=== PATIENT | female | born 1995 | race Caucasian/White ===

== ENCOUNTER 2017-06-15 17:05 | Emergency (ER) | payer BC, OTHER ==
[~2017-06-15] VITALS: Ht 165.1 cm; Wt 104.1 kg
[~2017-06-15 17:05] MED LIST: ASPEC325 PO; BCPILLS PO; GABA1CAP PO; OXYC-57 PO; OXYSR/10 PO; PROM25TA9 PO
[2017-06-15 17:06] VITALS: TEMP 36.7; Ht 165.1 cm; Wt 104.1 kg
[2017-06-15] MEDS ORDERED: IBUP-103 PO (17:26)
[2017-06-15] MEDS ORDERED: PLQ200 PO (17:26)
--- NOTE | 2017-06-15 17:33 | EMERGENCY ROOM VISIT NOTE ---
History Report prepared by Lolaibe: Kristy Alford Under the Supervision of: Dr. Abbe Joseph M.D. First contact with patient: 17:14 Chief Complaint: HEADACHE Stated Complaint: REALLY BAD HEADACHE History of Present Illness The patient is a 21 year old female who presents to the Emergency Room with complaints of a worsening headache for the past 4 days. She is accompanied by her parents. She rates her discomfort as a 7/10 in severity. Advil and extra strength Tylenol have provided only minimal relief. The patient complains of nausea but she has not vomited. She notes she has experienced similar headaches in the past, but states her current symptoms have lasted longer than any previous episode. The last time she had a headache was approximately 1 year ago. Her father admits to a family history of migraine headaches. She went to [facility] earlier today and was sent here to the ED for further evaluation and management. She denies any recent dizziness, fevers, chills, cough or cold symptoms, back pain, abdominal pain, vaginal bleeding or abnormal discharge, diarrhea or urinary symptoms. The patient also denies any recent drug or alcohol use and states she feels safe at home. Source of History: patient Onset: 4 days [employer]PUT[employer] TRA[employer] Position: head Symptom Intensity: 7/10 Timing: worsening Modifying Factors (Relieving): tylenol, ibuprofen (Advil) Associated Symptoms: + nausea, + vomiting, No fevers, No chills, No cough ( cough or cold symptoms), No abdominal pain, No back pain, No diarrhea, No urinary symptoms Review of Systems See HPI for pertinent positives and negatives. A total of ten systems were reviewed and were otherwise negative. Family History Migraine headaches Social History Smoking Status: Never Smoker Alcohol Use: occasionally Drug Use: none Marital Status: single Housing Status: lives with family Occupation Status: employed Current/Historical Medications Scheduled Control Pills ( Control Pills), 1 TAB PO HS Hydroxychloroquine Sulfate (Hydroxychloroquine Sulfat), 2 TABS PO HS Ibuprofen Tab (Advil), 600 MG PO UD Allergies Coded Allergies: No Known Allergies (Unverified , NONE, 06/15/17) Physical Exam Vital Signs Date Time Temp Pulse Resp B/P (MAP) Pulse Ox O2 Delivery O2 Flow Rate FiO2 06/15/17 19:55 69 18 128/62 98 Room Air 06/15/17 18:58 60 16 125/68 98 Room Air 06/15/17 17:06 36.7 70 18 125/69 98 Room Air Physical Exam GENERAL: Awake, alert, well-appearing, in no distress HENT: Normocephalic, atraumatic. Oropharynx unremarkable. Mildly dry mucous membranes. EYES: Normal conjunctiva. Sclera non-icteric. NECK: Supple. No nuchal rigidity. FROM. No JVD. RESPIRATORY: Clear to auscultation. CARDIAC: Regular rate, normal rhythm. Extremities warm and well perfused. Pulses equal. ABDOMEN: Soft, non-distended. No tenderness to palpation. No rebound or guarding. No masses. RECTAL: Deferred. MUSCULOSKELETAL: Chest examination reveals no tenderness. The back is symmetrical on inspection without obvious abnormality. There is no CVA tenderness to palpation. No joint edema. LOWER EXTREMITIES: Calves are equal size bilaterally and non-tender. No edema. No discoloration. NEURO: CN II-XII intact. Normal sensorium. No sensory or motor deficits noted. SKIN: No rash or jaundice noted. Medical Decision & Procedures Laboratory Results Test 06/15/17 19:16 Urine Test NEG (NEG) Laboratory results reviewed by me Medications Administered Medications (Trade) Dose Ordered Sig/Fly Route Start Time Stop Time Status Last Admin Dose Admin Sodium Chloride 1,000 ml @ 999 mls/hr Q1H1M STAT IV 06/15/17 17:49 06/15/17 18:49 DC 06/15/17 18:13 999 MLS/HR Metoclopramide HCl (Reglan Inj) 10 mg NOW STAT IV 06/15/17 17:49 06/15/17 17:53 DC 06/15/17 18:14 10 MG Ketorolac Tromethamine (Toradol Inj) 30 mg NOW STAT IV 06/15/17 17:49 06/15/17 17:53 DC 06/15/17 18:13 30 MG Diphenhydramine HCl (Benadryl Inj) 25 mg NOW STAT IV 06/15/17 17:49 06/15/17 17:53 DC 06/15/17 18:13 25 MG ED Course 1725: The patient was evaluated in room C3. A complete history and physical exam was performed. 1748: Benadryl 25 mg IV, Toradol 30 mg IV, Reglan 10 mg IV, NSS 1000 ml @ 999 mls/hr IV. 1913: I reevaluated the patient. She is feeling much better. I discussed her results and discharge instructions and she verbalized complete understanding and agreement. Medical Decision I reviewed the patient's past medical history, medications, and the nursing notes as described above. The differential diagnoses considered include tension headache, migraine headache, intracranial hemorrhage and meningitis. The patient is a 21 y/o woman who presents to the ED with gradual onset [place] for past 3 days per HPI. On arrival the patient is in NAD. AFVSS. Neck is supple with FROM. Neuro intact. Thus meningitis unlikley. Moreover, considering gradual onset and neuro intact unlikely SAH. Clinically dry but otherwise denies any infectious sx, , drug use. Given migraine cocktail with complete resolution of sx. Uhcg negative. Findings and plan for follow-up d/w patient. Patient agreeable and d/c'd per discharge instructions. Medication Reconcilliation Current Medication List: was personally reviewed by me Blood Pressure Screening Patient's blood pressure: Normal blood pressure Blood pressure disposition: Did not require urgent referral Impression Primary Impression: Headache Scribe Attestation The scribe's documentation has been prepared under my direction and personally reviewed by me in its entirety. I confirm that the note above accurately reflects all work, treatment, procedures, and medical decision making performed by me. Departure Information Dispostion Home / Self-Care Referrals Marci Evans M.D. (PCP) Patient Instructions Headaches Migraine and Tension, My [facility] Additional Instructions Please follow up with your primary care physician in the next 1-3 days. Symptoms improved with IV fluid hydration and a migraine treatment. Otherwise, your exam did not show signs of an emergent condition. Return to the emergency department for worsening symptoms as described in the accompanying instructions.
[2017-06-15] MEDS ORDERED: SODIUM CHLORIDE 0.9% 1000ML 1,000 ML IV STA (17:49)
[2017-06-15] MEDS ORDERED: METOCLOPRAMIDE HCL INJ 5 MG/ML 2 ML VIAL IV STA (17:49)
[2017-06-15] MEDS ORDERED: DiphenhydrAMINE HCL 50 MG/ML VIAL IV STA (17:49)
[2017-06-15] MEDS ORDERED: KETOROLAC TROMETHAMINE 30 MG/ML VIAL IV STA (17:49)
[2017-06-15 19:55] VITALS: BP 128/62; PULSE 69; O2SAT 98
== END 2017-06-15 20:07 | disposition home or self-care (01) ==
LOC: C.EDB 17:05 → C.EDC 20:07
DX: R51 Headache (principal); Z79.3 Long term (current) use of hormonal contraceptives

== ENCOUNTER → 2017-11-26 | Outpatient (CLI) | payer BC ==
[~2017-11-26] MED LIST changes: -ASPEC325 PO; -GABA1CAP PO; +IBUP-103 PO; -OXYC-57 PO; -OXYSR/10 PO; +PLQ200 PO; -PROM25TA9 PO
[2017-11-26 12:31] LABS: BASO % 0.5 %; BASO ABS # 0.03 K/uL (0-0.2); EOS % 2.8 %; EOS ABS # 0.17 K/uL (0-0.5); HEMATOCRIT 40.7 % (37-47); IG# 0.01 K/uL (0.00-0.02); LYMPH % 28.3 %; LYMPH ABS # 1.73 K/uL (1.2-3.4); MEAN CELL VOLUME 91.3 fL (80-100); MEAN CORPUSCULAR HEMOGLOBIN 31.4 pg (25-34); MEAN CORPUSCULAR HGB CONC 34.4 g/dl (32-36); MEAN PLATELET VOLUME 10.3 fL (7.4-10.4); MONO % 7.2 %; MONO ABS # 0.44 K/uL (0.11-0.59); NEUT ABS # 3.74 K/uL (1.4-6.5); PLATELET COUNT 288 K/uL (130-400); RED CELL DISTRIBUTION WIDTH CV 11.5 % (11.5-14.5); RED CELL DISTRIBUTION WIDTH SD 38.6 fL (36.4-46.3); WHITE BLOOD COUNT 6.12 K/uL (4.8-10.8)
[2017-11-26 12:53] LABS: ALBUMIN 3.6 gm/dl (3.4-5.0); ALT/SGPT 22 U/L (12-78); AST/SGOT 14 U/L (15-37); BLOOD UREA NITROGEN 10 mg/dl (7-18); CALCIUM 8.9 mg/dl (8.5-10.1); CARBON DIOXIDE 25 mmol/L (21-32); CREATININE 0.61 mg/dl (0.60-1.20); GLUCOSE 90 mg/dl (70-99); POTASSIUM 4.1 mmol/L (3.5-5.1); SODIUM 138 mmol/L (136-145)
[2017-11-26 13:03] LABS: ALKALINE PHOSPHATASE 75 U/L (45-117)
== END | disposition home or self-care (01) ==
LOC: C.LABBFT 09:27
PROVIDERS: ATTEND Internal Medicine
DX: Z00.00 Encounter for general adult medical examination without abnormal findings (principal); L93.2 Other local lupus erythematosus; R53.83 Other fatigue; R42 Dizziness and giddiness; M25.50 Pain in unspecified joint

== ENCOUNTER → 2018-05-28 | Outpatient (CLI) | payer BC ==
[2018-05-28 12:28] LABS: HEMATOCRIT 41.9 % (37-47); HEMOGLOBIN 14.2 g/dL (12.0-16.0); MEAN CELL VOLUME 90.3 fL (80-100); MEAN CORPUSCULAR HEMOGLOBIN 30.6 pg (25-34); MEAN CORPUSCULAR HGB CONC 33.9 g/dl (32-36); MEAN PLATELET VOLUME 10.8 fL (7.4-10.4); PLATELET COUNT 273 K/uL (130-400); RED CELL DISTRIBUTION WIDTH CV 11.7 % (11.5-14.5); RED CELL DISTRIBUTION WIDTH SD 38.6 fL (36.4-46.3); WHITE BLOOD COUNT 3.99 K/uL (4.8-10.8)
[2018-05-28 13:02] LABS: ALBUMIN 3.7 gm/dl (3.4-5.0); ALKALINE PHOSPHATASE 89 U/L (45-117); ALT/SGPT 26 U/L (12-78); AST/SGOT 16 U/L (15-37); BLOOD UREA NITROGEN 11 mg/dl (7-18); CALCIUM 8.3 mg/dl (8.5-10.1); CARBON DIOXIDE 26 mmol/L (21-32); CREATININE 0.66 mg/dl (0.60-1.20); GLUCOSE 87 mg/dl (70-99); POTASSIUM 4.2 mmol/L (3.5-5.1); SODIUM 142 mmol/L (136-145); TOTAL PROTEIN 7.1 gm/dl (6.4-8.2)
== END | disposition home or self-care (01) ==
LOC: C.LABBFT 10:11
PROVIDERS: ATTEND Internal Medicine
DX: R42 Dizziness and giddiness (principal); R51 Headache